=== PATIENT | male | born 1950 | race Caucasian/White ===

== ENCOUNTER 2017-11-24 16:13 | Inpatient (IN) ==
[2017-11-24] MEDS ORDERED: Iohexol 350 MG/ML 50 ML Vial (for Cath Lab) IVCONTRAST ONE (16:14)
[2017-11-24] MEDS ORDERED: Iohexol 350 MG/ML 100 ML Vial (for Cath Lab) IVCONTRAST ONE (16:14)
[2017-11-24 16:49] LABS: Baso % (Auto) 0.5 % (0.0-2.0); Eos # (Auto) 0.1 th/mm3 (0.0-0.4); Eos % (Auto) 1.2 % (0.0-4.0); Hematocrit 45.9 % (39.0-51.0); Hemoglobin 15.5 gm/dL (13.0-17.0); Lymph # (Auto) 1.8 th/mm3 (1.0-4.8); Lymph % (Auto) 20.2 % (9.0-44.0); Mean Corpuscular HGB Conc 33.8 % (32.0-36.0); Mean Corpuscular Volume 88.7 fL (80.0-100.0); Mono # (Auto) 0.5 th/mm3 (0.0-0.9); Neut # (Auto) 6.2 th/mm3 (1.8-7.7); Neut % (Auto) 72.1 % (16.0-70.0); Platelet Count 230 th/mm3 (150-450); Red Blood Count 5.18 mil/mm3 (4.50-5.90); Red Cell Distribution Width 13.2 % (11.6-17.2); White Blood Count 8.7 th/mm3 (4.0-11.0)
[2017-11-24 17:14] LABS: Activated Partial Thrombo Time 25.9 sec (24.3-30.1); Anion Gap 7 meq/L (5-15); Blood Urea Nitrogen 18 mg/dL (7-18); Calcium 9.2 mg/dL (8.5-10.1); Chloride 108 meq/L (98-107); Glomerular Filtration Rate 63 mL/min (>89); Glucose,Random 106 mg/dL (74-106); Prothrombin Time 10.2 sec (9.8-11.6); Sodium 143 meq/L (136-145)
[2017-11-24] MEDS ORDERED: Misc Info for Pharmacy OTHER STA (17:29)
[2017-11-24] MEDS ORDERED: Atropine Inj 1 MG/ML Vial IV.PUSH PRN (17:29)
[2017-11-24] MEDS ORDERED: Temazepam 15 MG Capsule PO PRN (17:29)
[2017-11-24] MEDS ORDERED: Acetaminophen 325 MG Tablet PO PRN (17:29)
--- NOTE | 2017-11-24 17:51 | CATHPROC ---
[address] HIS Report Study Information Study Number Admission Scheduled Start Study Start [id number] Nov 24 2017 4:13PM 11/24/2017 Nov 24 2017 4:43PM [place] [facility] Cardiac Catheterization Admit Source Facility Department Emergency department [facility] - [facility] Physician and Clinical Staff Initial Maulik [facility] Veronica Victoria,RT(R) [facility] Familia Mejia,OMER Obregon RN, Shan Recorder Orly Longoria BSN Scrub Myriam Mathew ,RT(R) Procedures Performed Procedure Location (Site) Vessel Name Coronary Angiograms LCA Left Coronary Coronary Angiograms RCA Right Coronary Coronary Angiograms BRUNNER Graft Left Coronary Coronary Angiograms Gft. Stump 1 SVG Graft Coronary Angiograms Gft. Stump 2 SVG Graft Drug Eluting Inflatio OM1 Prox CIRC Drug Eluting Inflatio OM2 Mid CIRC L Heart Cath PTCA OM2 Mid CIRC Wire insertion Fem Art (right) Femoral Art Equipment Time Facilities Engineer Description Size Mfg Part Number Used/Scraped TRANSDUCER, TRUWAVE [id number] 16:52 IGLESIAS CAREY * Used W/STOCKCOCK *[id number] *[id number] *[id number] *[id number] 17:20 DAIG/[employer]. [employer] ANGIOSEAL, FR6 VIP FR 6 Used *[id number] 16:52 [employer], BLANKET,WARM AIR CCL * Used *[id number] 16:52 [employer], PACK, CCL CUSTOM * Used *[id number] 16:52 [employer] PACER PEN, SKIN DUAL W/ RULER * Used *[id number] 17:01 MEDTRONIC BALLOON, 2.5 X 12MM EUPHORA 12MM Used *[id number] 17:12 MEDTRONIC STENT, 2.5 38MM SHEA 2.5 38MM [id number] Used [id number] 17:06 MEDTRONIC STENT, 2.75 12MM SHEA 2.75 12MM Used *[id number] 17:04 Beaut[employer]ish MEDICAL 30 SAPPHIRE INDEFLATOR Used *[id number] 16:52 Zebtab WIRE, 3MMJ .035 180CM 180CM Used *[id number] 16:52 [facility], 4 PORT * Used *[id number] 16:52 NYCOMED OMNIPAQUE, 350 MG, 150ML 150ML [id number] Used 16:52 NYCOMED OMNIPAQUE, 350 MG, 150ML 150ML [id number] Used 16:54 [employer]COMED OMNIPAQUE, 350 MG, 50ML 50ML [id number] Used [id number] 16:52 TERUMO MEDICAL SHEATH, FR5 TERUMO (10CM) FR 5 Used *[id number] WIRE, RUNTHROUGH NS FLOPPY [id number] 16:59 TERUMO MEDICAL 300CM Used .014 300CM *[id number] Equipment Model, Serial, Lot Number and Expiration Data Description Model Number Serial Number Lot Number Expiration Date ANGIOSEAL, FR6 VIP [id number] 05-20-2018 STENT, 2.75 12MM SHEA [id number] 06-25-2019 History: Current Medications Medication Dosage/Unit Route Frequency Last Date/Time Taken ASA 324 mg History: Allergies Allergy Reaction No Known Allergies History: Risk Factors Hypertension Dyslipidemia Previous CA Previous Heart Failure Yes Yes No No Prior Valve Prior PCI Prior CABG Prior CABGDate Surgery No No Yes 12/19/2008 Cerebrovascular Peripheral Artery Chronic Lung On Dialysis Diabetes Disease Disease Disease No No No No No History: Symptoms/Diagnosis Selection Items Chest pain History: CV Disease Selection Items Known CAD History: Stress Tests Stress or Imaging Studies Performed No History: CA/CV Data Previous CABG Date 12/19/2008 History: Other Current Smoker Method Quit Packs a Day No Cigarettes 20 Years Ago 20 Labs Hgb (g/dl) Hct (%) RBC (MIL/MM3) WBC (l/cumm) Platelets (thousands) 11.60-17.00 35.00-51.00 4.00-5.90 4.00-11.00 150.00-450.00 15.5 45.9 5.2 8.7 230 Glucose (mg/dl) BUN (mg/dl) Creatinine (mg/dl) BUN:Creatinine (1:x) 74.00-106.00 7.00-18.00 0.50-1.30 10.00-20.00 106 18 1.1 16.4 Na (meq/l) K (meq/l) 136.00-145.00 3.50-5.10 143 4 INR (PTT:PT) 0.90-1.10 1 Troponin I (ng/ml) CPK-MB (ng/ML) 0.02-0.05 0.50-3.60 0.02 Not Drawn Medication Medication Total Dose (Bolus/Oral) Medication Total Dosage/Unit 1% XYLOCAINE 20 mL ANGIOMAX BOLUS 13.5 mL FENTANYL 100 mcg NTG (IC) 200 mcg PLAVIX 600 mg VERSED 2 mg Medications (Bolus/Oral) Medication Time Given Dosage/Unit Administered By Reason VERSED 11/24/2017 4:48:19 PM 1 mg Jackie, Familia 1 mg VERSED given in lab by Familia Mejia RN via Peripheral IV. Ordered by Maulik Russell. FENTANYL 11/24/2017 4:49:23 PM 50 mcg Jackie, Familia 50 mcg FENTANYL given in lab by Familia Mejia RN via Peripheral IV. Ordered by Maulik Russell. 1% XYLOCAINE 11/24/2017 4:50:14 PM 20 mL Maulik Russell 20 mL 1% XYLOCAINE given in lab by Maulik Russell via Subcutaneous. Ordered by Maulik Russell. ANGIOMAX BOLUS 11/24/2017 5:01:53 PM 13.5 mL Jackie, Familia 13.5 mL ANGIOMAX BOLUS given in lab by Familia Mejia RN via Peripheral IV. Ordered by Maulik Russell. VERSED 11/24/2017 5:08:55 PM 1 mg Jackie, Familia 1 mg VERSED given in lab by Familia Mejia RN via Peripheral IV. Ordered by Maulik Russell. FENTANYL 11/24/2017 5:09:06 PM 50 mcg Jackie, Familia 50 mcg FENTANYL given in lab by Familia Mejia RN via Peripheral IV. Ordered by Maulik Russell. NTG (IC) 11/24/2017 5:16:37 PM 200 mcg Jackie, Familia 200 mcg NTG (IC) given in lab by Familia Mejia RN via Intra-coronary. Ordered by Maulik Russell. PLAVIX 11/24/2017 5:25:56 PM 600 mg Jackie, Familia 600 mg PLAVIX given in lab by Familia Mejia RN via Oral. Ordered by Maulik Russell. Medication (Drip) Medication Time Given Dosage/Unit Concentration/Unit Diluent (ml) Solution ANGIOMAX DRIP 11/24/2017 5:04:55 PM 1.733 mg/kg/hr 250 mg 50 NaCl .9 1.733 mg/kg/hr ANGIOMAX DRIP given in lab by Familia Mejia RN via Peripheral IV. Pump/Drip Flow = 31. 5 ml/hr using NaCl .9 with a concentration of 250 mg in 50 ml. Ordered by Maulik Russell. IV Solutions 11/24/2017 4:45:29 PM 0 mL (IV) 500 NaCl .9 IV Solutions given in lab by Familia Mejia RN in Right Antecubital via Peripheral IV. Pump/Drip Flow = 20 ml/hr using NaCl .9. Initial Case Assessment Cardiovascular HR Rhythm Chest Pain 68 SR 0 Edema Present Skin color Skin None Normal Warm Dry Circulatory - Right Pulses Dorsalis Pedis Femoral 3 2 Scale (0,1,2,3,4,d) Circulatory - Left Pulses Dorsalis Pedis Femoral 3 2 Scale (0,1,2,3,4,d) Circulatory - Lower Extremities Color Lower Right Color Lower Left Normal Normal Neurological State Oriented to time-place- Alert Moves all extremities person Respiration - General Respiration Rate SpO2 (%) (B/min) 17 99 Final Case Assessment Cardiovascular HR Rhythm NIBP Chest Pain 54 SB 151/81 0 Edema Present Skin color Skin None Normal Warm Dry Circulatory - Right Pulses Dorsalis Pedis Femoral 3 2 Scale (0,1,2,3,4,d) Circulatory - Left Pulses Dorsalis Pedis Femoral 3 2 Scale (0,1,2,3,4,d) Circulatory - Lower Extremities Color Lower Left Normal Neurological State Oriented to time-place- Alert Moves all extremities person Respiration - General Respiration Rate SpO2 (%) O2 (lpm) (B/min) 17 98 2 Chronological Log Time Study Chronological Log 16:37:50 Patient arrived via Bed. 16:38:10 Patient Name, D.O.B, / Armband Verified By R.N. 16:40:00 MD arrived. 16:43:14 Consent signed by the physician and the patient and verified by the [facility] staff. 16:43:15 Pre-op and post- op instructions given; patient acknowledges understanding of instructions. 16:43:16 Verbal Stimulation=2 Physical Stimulation=2 Airway=2 Respiration=2 TOTAL=8. (0=absent, 1=li mited, 2=present) 16:44:58 Patient has been NPO for More than 6Hrs. Skin Breakdown-NONE 58 16:45:04 A # 20 IV was noted in the Antecubital (left). Grade = 0 16:45:21 A # 20 IV was noted in the Antecubital (right). Grade = 0 IV Solutions given in lab by Familia Mejia RN in Right Antecubital via Peripheral IV. Pump/Drip Flow = 20 ml/hr using 16:45:29 NaCl .9. ::58 Disposable Defibrillator Pads Placed On Patient. 16:46:04 History and physical on the chart or being dictated. 16:46:07 Reference ECG taken Vitals capture started with the following parameters, Patient=Adult, Interval=5 min, Initial Pr qrlanm=929 mmHg, 16:46:09 Deflation Rate=5 mmHg, Cuff placed on Left Arm Assessment: Initial Case, HR=68 BPM, Rhythm=SR, Chest Pain=0, Edema=None, Color=Normal, Skin = Warm, Dry Right Pulses: Ray Ped=3, Femoral=2 Left Pulses: Ray Ped=3, Femoral=2 16:47:23 Lower Right Extremities: Color=Normal Lower Left Extremities: Color=Normal Neurological: State=Alert, Ox3, HARDEN Respiration: Resp=17 B/min, SpO2=99 % 16:47:34 HR=67 bpm, KJGD=486/78 mmhg, SpO2=99.0 %, Resp=25 B/min, Pain=0, Rafael=10, Irene=2 16:48:19 1 mg VERSED given in lab by Familia Mejia RN via Peripheral IV. Ordered by Maulik Russell. Time Out. Correct patient, correct procedure, correct physician, labs, allergies, and equipment verified with slabbing machine operator 16:48:43 team present. Fire risk assesment completed (see hard stop sheet for coding). Time Out Conc urred by MD and individual staff in procedure. 16:49:23 50 mcg FENTANYL given in lab by Familia Mejia RN via Peripheral IV. Ordered by Saray Russell 16:49:33 Case Start 16:50:14 20 mL 1% XYLOCAINE given in lab by Maulik Russell via Subcutaneous. Ordered by Saray Russell 16:51:00 Pressure channel 1 zeroed. 16:51:31 Access site was Right Femoral Artery. A JR 4.0 INFINITI CATHETER FR 6 was advanced over a wire. OMNIPAQUE, 350 MG, 150ML 150ML was us ed for 16:51:39 injections. 16:52:00 HR=68 bpm, XEPZ=202/82 mmhg, LwM1=442.0 %, Resp=13 B/min Recorded Pressure: LV, Ao, HR=78, Condition=Condition 1 16:53:05 (Left Ventricle) LV 152/-12/29, (Aorta) Ao 148/66/102 16:53:37 The RCA was injected and visualized at various angles. OMNIPAQUE, 350 MG, 150ML 150ML used . 16:56:00 The BRUNNER Graft was injected and visualized at various angles. OMNIPAQUE, 350 MG, 150ML 150M L used. After removing the current catheter a JL 4.0 INFINITI CATHETER FR 6 was advanced over a WIRE, 3 MMJ .035 180CM 16:56:25 180CM. 16:57:01 HR=68 bpm, VXGT=074/81 mmhg, ZjA1=704.0 %, Resp=14 B/min 16:57:44 The LCA was injected and visualized at various angles. OMNIPAQUE, 350 MG, 150ML 150ML used . 16:58:07 The Gft. Stump 1 was injected and visualized at various angles. OMNIPAQUE, 350 MG, 150ML 15 0ML used. 16:58:30 The Gft. Stump 2 was injected and visualized at various angles. OMNIPAQUE, 350 MG, 150ML 15 0ML used. 16:58:49 The Gft. Stump 2 was injected and visualized at various angles. OMNIPAQUE, 350 MG, 150ML 15 0ML used. After removing the current catheter a XB 3.5 GUIDE CATHETER FR 6 was advanced over a WIRE, RUNT HROUGH NS 16:59:02 FLOPPY .014 300CM 300CM. 17:00:18 A WIRE, RUNTHROUGH NS FLOPPY .014 300CM 300CM was inserted via Fem Art (right). 17:01:53 13.5 mL ANGIOMAX BOLUS given in lab by Familia Mejia, RN via Peripheral IV. Ordered by Maulik Russell. 17:01:58 HR=74 bpm, KLQJ=691/90 mmhg, FpX0=589.0 %, Resp=15 B/min 17:02:25 Interventional wire has crossed the lesion Recorded Pressure: Ao, HR=73, Condition=Condition 1 17:02:34 (Aorta) Ao 147/73/105 17:03:30 A balloons was inserted over wire via the ~SITE~. A BALLOON, 2.5 X 12MM EUPHORA 12MM over a WIRE, RUNTHROUGH NS FLOPPY .014 300CM 300CM in the OM 2 Mid 17:03:32 was inflated using a 30 SAPPHIRE INDEFLATOR at 7 sapphire for 13 sec. A BALLOON, 2.5 X 12MM EUPHORA 12MM over a WIRE, RUNTHROUGH NS FLOPPY .014 300CM 300CM in the OM 2 Mid 17:03:50 was inflated using a 30 SAPPHIRE INDEFLATOR at 12 sapphire for 9 sec. 1.733 mg/kg/hr ANGIOMAX DRIP given in lab by Familia Mejia RN via Peripheral IV. Pump/Drip Flow = 31.5 ml/hr 17:04:55 using NaCl .9 with a concentration of 250 mg in 50 ml. Ordered by Maulik Russell. 17:07:02 HR=70 bpm, XKWP=067/85 mmhg, GiS8=748.0 %, Resp=14 B/min A STENT, 2.75 12MM SHEA 2.75 12MM was advanced through a XB 3.5 GUIDE CATHETER FR 6 over a WIRE , 17:07:42 RUNTHROUGH NS FLOPPY .014 300CM 300CM. A STENT, 2.75 12MM SHEA 2.75 12MM was deployed using a 30 SAPPHIRE INDEFLATOR at 14 atmospheres for 10 seconds 17:07:54 in the OM2 Mid. 17:08:40 Delivery device removed 17:08:55 1 mg VERSED given in lab by Familia Mejia RN via Peripheral IV. Ordered by Maulik Russell. 17:09:06 50 mcg FENTANYL given in lab by Familia Mejia RN via Peripheral IV. Ordered by Saray Russell. 17:10:48 WIRE REPOSITIONED TO OM1 A STENT, 2.5 38MM SHEA 2.5 38MM was advanced through a XB 3.5 GUIDE CATHETER FR 6 over a WIRE, 17:11:57 RUNTHROUGH NS FLOPPY .014 300CM 300CM. 17:12:01 HR=72 bpm, SBBA=998/91 mmhg, SpO2=99.0 %, Resp=13 B/min A STENT, 2.5 38MM SHEA 2.5 38MM was deployed using a 30 SAPPHIRE INDEFLATOR at 16 atmospheres for 10 seconds in 17:13:02 the OM1 Prox. 17:13:24 Re-inflated the stent balloon in the OM1 Prox to 8 SAPPHIRE for 20 seconds. 17:14:54 Re-inflated the stent balloon in the OM1 Prox to 8 SAPPHIRE for 30 seconds. 17:15:28 Re-inflated the stent balloon in the OM1 Prox to 8 SAPPHIRE for 30 seconds. 17:15:55 Delivery device removed 17:16:37 200 mcg NTG (IC) given in lab by Familia Mejia RN via Intra-coronary. Ordered by Micky Russell. 17:17:00 HR=76 bpm, TXRJ=726/84 mmhg, SpO2=99.0 %, Resp=23 B/min 17:17:35 Wire removed 17:18:28 Catheter removed without difficulty 17:20:05 ANGIOSEAL, FR6 VIP FR 6 placement in the Fem Art (right); PRESSURE HELD POST DEPLOYMENT 17:21:57 HR=65 bpm, HNFD=999/85 mmhg, SpO2=98.0 %, Resp=17 B/min 17:22:01 Case End (Physician broke scrub) 17:22:17 No case complications noted. 17:22:18 Cine recording checked. 17:22:21 Bedside Report will be given. 17:22:25 Implantable Device card placed in patient's chart. 17:22:31 A Left Heart Cath was performed. 17:25:56 600 mg PLAVIX given in lab by Familia Mejia, RN via Oral. Ordered by Maulik Russell. 17:26:58 HR=54 bpm, DBSA=484/77 mmhg, SpO2=98.0 %, Resp=13 B/min 17:32:29 HR=54 bpm, RTPU=447/85 mmhg, SpO2=98.0 %, Resp=21 B/min 17:34:37 Sterile dressing applied to site 17:37:00 HR=54 bpm, VORP=566/81 mmhg, SpO2=98.0 %, Resp=20 B/min Assessment: Final Case, HR=54 BPM, Rhythm=SB, UCDA=716/81 mmhg, Chest Pain=0, Edema=None, Color =Normal, Skin = Warm, Dry Right Pulses: Ray Ped=3, Femoral=2 17:38:09 Left Pulses: Ray Ped=3, Femoral=2 Lower Left Extremities: Color=Normal Neurological: State=Alert, Ox3, HARDEN Respiration: Resp=17 B/min, SpO2=98 %, O2=2 lpm 17:39:14 Sterile dressing applied to site 17:43:33 Patient moved to stretcher End Study - Contrast Media Used In Study Contrast Total Opened (mL) Total Used (mL) Total Wasted (mL) Omnipaque 125 125 0 End Study - Maximum Contrast Load Max Contrast Load (mL) 413.2 End Study - Radiation Exposure Fluoro Time (minutes) 5.9 End Study - Patient Disposition Complications Transferred To Interventional Outcome No Telemetry Bed successful
[2017-11-24] MEDS ORDERED: Heparin/NS PF Inj 500 ML ONE (17:59)
[2017-11-24] MEDS ORDERED: fentaNYL Citrate Inj 100 MCG/2 ML Ampul ONE (18:00)
--- NOTE | 2017-11-24 18:11 | MH ---
cc: Maulik Russell MD DATE OF ADMISSION: 11/24/[address] INDICATION: ST elevation myocardial infarction. HISTORY OF PRESENT ILLNESS: This is a 67-year-old gentleman with history of prior coronary artery disease and bypass surgery, who follows with Dr. Mitchell in the outpatient setting, also has a history of hypertension, hyperlipidemia, multiple eye surgeries. He was at the gym earlier today, states that he normally exercises without any symptoms. He developed substernal chest pain and became very difficult to breathe. He drove himself over to our office, at which time, electrocardiogram was performed, which showed inferolateral ST elevation and EMS was called. He was taken over to the Emergency Department and taken up to the cardiac catheterization lab for possible revascularization with ongoing symptoms and EKG changes. PAST MEDICAL HISTORY: As mentioned above, history of coronary artery disease, eye surgery, hyperlipidemia, hypertension. MEDICATIONS: See medication reconciliation. ALLERGIES: NONE. REVIEW OF SYSTEMS: A 12-point review of systems was performed, negative unless otherwise noted in history of present illness. SOCIAL HISTORY: Denies any alcohol, tobacco use or drug use. Remote smoking history, but quit 20 years ago. PHYSICAL EXAMINATION: VITAL SIGNS: Heart rate 51, blood pressure is 133/70 mmHg. GENERAL: Alert and oriented x 3, in mild distress. HEENT: Shows pupils reactive to light and accommodation. Extraocular movements are intact. NECK: No elevation, jugular venous distention. No thyromegaly. No lymphadenopathy. No carotid bruits. LUNGS: Clear to auscultation bilaterally. CARDIOVASCULAR: Regular rate and rhythm, without murmurs, rubs or gallops. ABDOMEN: Nontender, nondistended. Good bowel sounds. No hepatosplenomegaly. EXTREMITIES: no edema. Good peripheral pulses. NEUROLOGIC: Cranial nerves intact. Motor and sensory grossly intact. LABORATORY DATA: Pending. ELECTROCARDIOGRAM: Inferolateral ST elevation, normal sinus rhythm. PLAN: ST elevation myocardial infarction, history of coronary artery disease. The patient will be brought emergently to the cardiac catheterization lab for attempted revascularization. Risks, benefits and alternatives discussed. The patient understood. We will initiate aspirin. We will hold off on beta saleem given bradycardia. Maulik Russell MD [facility] , 05:49 PM , 05:59 PM [place]
[2017-11-24] MEDS ORDERED: Sodium Chlor 0.9% Inj 250 ML IV.SIG ONE (19:30)
[2017-11-25 05:36] LABS: Baso % (Auto) 0.4 % (0.0-2.0); Eos # (Auto) 0.1 th/mm3 (0.0-0.4); Eos % (Auto) 1.3 % (0.0-4.0); Hematocrit 45.9 % (39.0-51.0); Hemoglobin 15.5 gm/dL (13.0-17.0); Lymph # (Auto) 1.9 th/mm3 (1.0-4.8); Lymph % (Auto) 20.3 % (9.0-44.0); Mean Corpuscular HGB Conc 33.9 % (32.0-36.0); Mean Corpuscular Volume 88.5 fL (80.0-100.0); Mean Platelet Volume 7.2 fL (7.0-11.0); Mono # (Auto) 0.9 th/mm3 (0.0-0.9); Mono % (Auto) 9.1 % (0.0-8.0); Neut # (Auto) 6.5 th/mm3 (1.8-7.7); Neut % (Auto) 68.9 % (16.0-70.0); Platelet Count 224 th/mm3 (150-450); Red Blood Count 5.19 mil/mm3 (4.50-5.90); Red Cell Distribution Width 13.1 % (11.6-17.2); White Blood Count 9.4 th/mm3 (4.0-11.0)
[2017-11-25 05:57] LABS: Calcium 8.7 mg/dL (8.5-10.1); Carbon Dioxide 29.5 meq/L (21.0-32.0); Potassium 3.9 meq/L (3.5-5.1)
[2017-11-25 05:59] LABS: Chol/HDL Ratio 4.25 Ratio; HDL Cholesterol 42.5 mg/dL (40.0-60.0)
[2017-11-25] MEDS: Isosorbide Mononitrate 30 MG ER 24HR Tablet (Imdur) PO SCH (06:07)
[2017-11-25 06:16] LABS: Creatine Kinase MB 93.9 ng/mL (0.5-3.6)
[2017-11-25 06:37] LABS: CKMB Percent 11.1 % (0.0-4.0)
--- NOTE | 2017-11-25 08:08 | P.PNCA ---
Subjective Interval history: states + "anxiety" because he did not get his benzo no CP run of asymptomatic NSVT last night He is eager to go home! Physical Exam Vital signs: Vital Signs 11/24/17 16:16 11/24/17 18:00 11/24/17 18:15 Temperature 98.3 F 97.8 F 97.8 F Pulse Rate 60 53 L 48 L Respiratory Rate 18 18 18 Blood Pressure 187/87 H 140/71 130/66 Pulse Oximetry 97 99 97 11/24/17 19:00 11/24/17 20:00 11/24/17 21:00 Temperature 98.4 F Pulse Rate 48 L 80 80 Respiratory Rate 18 Blood Pressure 115/67 Pulse Oximetry 97 11/24/17 22:00 11/24/17 23:00 11/25/17 00:00 Temperature 98.7 F Pulse Rate 76 77 64 Respiratory Rate 18 Blood Pressure 125/74 Pulse Oximetry 99 11/25/17 01:00 11/25/17 02:00 11/25/17 03:00 Temperature 99 F Pulse Rate 70 66 64 Respiratory Rate 16 Blood Pressure 137/74 Pulse Oximetry 98 11/25/17 04:00 11/25/17 05:00 11/25/17 06:00 Temperature Pulse Rate 64 86 78 Respiratory Rate Blood Pressure Pulse Oximetry 11/25/17 07:00 Temperature 98.6 F Pulse Rate 62 Respiratory Rate 18 Blood Pressure 144/74 H Pulse Oximetry 94 L Intake & Output 11/24/17 11/25/17 11/25/17 18:59 06:59 18:59 Intake Total 5 / 5 240 / 240 Output Total 575 / 575 Balance 5 / 5 -335 / -335 Weight 90.718 kg Intake: IV 5 / 5 Heparin/NS PF Inj 500 ML @ 0 5 / 5 mls/hr .ROUTE .STK-MED ONE Rx#: [id number] Oral 240 / 240 Output: Urine 575 / 575 Other: Date of Last Bowel Movement 11/24/17 - Constitutional no acute distress - Routine HEENT Exam Head: Present: normocephalic Eye: Present: PERRL ENT: Present: mucous membranes moist - Routine Neck Exam Absent: JVD - Routine Respiratory Exam Present: CTA bilaterally - Routine Cardiovascular Exam Present: RRR - Routine Abdominal Exam Present: soft, normoactive bowel sounds Assessment and Plan - Plan STEMI - PCI TARA OM1 and OM2 doing well asa plavix statin HR improved. add BB NSVT - likely due to reperfusion arrhythmia and acute ME. monitor tele today. BB added. 2d echo today ambulate He really wants to go home today. I discussed risks and concerns. he is agreeable to stay through the afternoon to see if any further arrhythmia and for echo, then we can decide disposition.
[2017-11-25] MEDS: clonazePAM 0.5 MG Tablet PO SCH (08:29)
[2017-11-25] MEDS: Metoprolol Tartrate 25 MG Tablet PO SCH ×2 (08:29→20:35)
[2017-11-25] MEDS: Lisinopril 10 MG Tablet PO SCH (08:29)
--- NOTE | 2017-11-25 12:28 | ECHRPT ---
Indication: CHEST PAIN CONCLUSIONS The left ventricular systolic function is normal with an estimated ejection fraction in the range of 60-65%. Normal left ventricular size. Wall thickness is normal. No regional wall motion abnormalities are present. Trace mitral valve regurgitation. There is trace tricuspid valve regurgitation. The estimated pulmonary arterial pressure is 38.3 mmHg. BP: / HR: Rhythm: Sinus MEASUREMENTS (Male / Female) Normal Values Technical Quality:Good 2D ECHO LV Diastolic Diameter PLAX 4.9 cm 4.2 - 5.9 / 3.9 - 5.3 cm LV Systolic Diameter PLAX 3.5 cm IVS Diastolic Thickness 1.1 cm 0.6 - 1.0 / 0.6 - 0.9 cm LVPW Diastolic Thickness 1.1 cm 0.6 - 1.0 / 0.6 - 0.9 cm LV Relative Wall Thickness 0.5 RV Internal Dim ED PLAX 2.7 cm LVOT Diameter 1.9 cm LA Systolic Diameter LX 4.0 cm 3.0 - 4.0 / 2.7 - 3.8 cm LV Ejection Fraction MOD 4C 64.9 % LV Ejection Fraction 4C AL 66.2 % M-MODE Aortic Root Diameter MM 2.5 cm LA Systolic Diameter MM 4.0 cm LA Ao Ratio MM 1.6 AV Cusp Separation MM 1.9 cm DOPPLER AV Peak Velocity 159.0 cm/s AV Peak Gradient 10.1 mmHg LVOT Peak Velocity 101.0 cm/s LVOT Peak Gradient 4.1 mmHg AV Area Cont Eq pk 1.8 cm MV Area PHT 3.3 cm Mitral E Point Velocity 104.0 cm/s Mitral A Point Velocity 83.4 cm/s Mitral E to A Ratio 1.2 LV E' Lateral Velocity 8.3 cm/s Mitral E to LV E' Lateral Ratio 12.5 LV E' Septal Velocity 7.2 cm/s Mitral E to LV E' Septal Ratio 14.4 TR Peak Velocity 266.0 cm/s TR Peak Gradient 28.3 mmHg Right Atrial Pressure 10.0 mmHg Pulmonary Artery Systolic Pressu 38.3 mmHg Right Ventricular Systolic Press 38.3 mmHg PV Peak Velocity 121.0 cm/s PV Peak Gradient 5.9 mmHg FINDINGS LEFT VENTRICLE The left ventricular systolic function is normal with an estimated ejection fraction in the range of 60-65%. Normal left ventricular size. Wall thickness is normal. No regional wall motion abnormalities are present. RIGHT VENTRICLE Normal right ventricular size and systolic function. LEFT ATRIUM The left atrial size is normal. RIGHT ATRIUM The right atrial size is normal. ATRIAL SEPTUM Normal atrial septal thickness without atrial level shunting by limited color doppler interrogation. AORTA The aortic root and proximal ascending aorta are normal in size on limited imaging. MITRAL VALVE Structurally normal mitral valve. Trace mitral valve regurgitation. AORTIC VALVE Trileaflet aortic valve. No aortic valve stenosis or regurgitation. TRICUSPID VALVE Structurally normal tricuspid valve. There is trace tricuspid valve regurgitation. The estimated pulmonary arterial pressure is 38.3 mmHg. PULMONARY VALVE No pulmonary valve regurgitation or stenosis. VESSELS The inferior vena cava is normal in size. PERICARDIUM No pericardial effusion. Maluik Russell MD, FACC (Electronically Signed) Final Date:25 November 2017 12:27
[2017-11-25] MEDS ORDERED: clonazePAM 1 MG Tablet PO ONE (15:30)
--- NOTE | 2017-11-25 18:10 | ECG ---
Date Performed: 11/25/2017 Time Performed: 06:33:08 PTAGE: 67 years EKG: Sinus rhythm . Ant/septal and lateral T wave changes are nonspecific Borderline ECG PREVIOUS TRACING : 11/24/2017 16.24 Since the previous tracing, no significant change noted DOCTOR: Radhames Robertson Interpretating Date/Time 11/25/2017 18:08:47
[2017-11-25] MEDS ORDERED: clonazePAM 0.5 MG Tablet PO SCH (21:00)
--- NOTE | 2017-11-25 22:36 | ECG ---
Date Performed: 11/24/2017 Time Performed: 16:24:28 PTAGE: 67 years EKG: Sinus rhythm ST ELEVATION, CONSIDER INFERIOR INJURY ACUTE NE INTERPRETATION BASED ON A DEFAULT AGE OF 40 YE ARS PREVIOUS TRACING : 06/29/2009 21.46 Compared to previous tracing, INFERIOR ST ABNORMALIT IES ARE NEW DOCTOR: Radhames Robertson Interpretating Date/Time 11/25/2017 22:32:03
[2017-11-26] MEDS: Isosorbide Mononitrate 30 MG ER 24HR Tablet (Imdur) PO SCH (06:03)
--- NOTE | 2017-11-26 07:57 | P.PNCA ---
<Tutu Valdes - Last Filed: 11/26/17 07:55> Subjective Interval history: The patient is doing well; no chest pain, shortness of breath, or palpitations. No issues with groin access. Telemetry showed some runs of NSVT yesterday afternoon and evening. Asked EP for evaluation, currently awaiting. Physical Exam Vital signs: Vital Signs 11/25/17 08:00 11/25/17 09:00 11/25/17 11:00 Temperature 98.9 F Pulse Rate 55 L 54 L Respiratory Rate 18 Blood Pressure 101/75 Pulse Oximetry 98 97 11/25/17 12:49 11/25/17 14:00 11/25/17 15:00 Temperature 98.4 F Pulse Rate 56 L 56 L Respiratory Rate 18 Blood Pressure 137/72 Pulse Oximetry 94 L 98 11/25/17 16:00 11/25/17 17:00 11/25/17 18:00 Temperature Pulse Rate 58 L 56 L 66 Respiratory Rate Blood Pressure Pulse Oximetry 11/25/17 19:00 11/25/17 20:00 11/25/17 21:00 Temperature 98.7 F Pulse Rate 64 70 60 Respiratory Rate 14 Blood Pressure 137/73 Pulse Oximetry 98 97 11/25/17 22:00 11/25/17 23:00 11/26/17 00:00 Temperature 97.6 F Pulse Rate 50 L 51 L 50 L Respiratory Rate 12 Blood Pressure 95/50 L Pulse Oximetry 98 11/26/17 01:00 11/26/17 02:00 11/26/17 03:00 Temperature 98.3 F Pulse Rate 52 L 58 L 53 L Respiratory Rate 14 Blood Pressure 126/68 Pulse Oximetry 96 11/26/17 04:00 11/26/17 05:00 11/26/17 06:00 Temperature Pulse Rate 52 L 56 L 50 L Respiratory Rate Blood Pressure Pulse Oximetry Intake & Output 11/25/17 11/26/17 11/26/17 18:59 06:59 18:59 Intake Total 240 / 240 240 / 240 Output Total 600 / 600 900 / 900 Balance -360 / -360 -660 / -660 Weight 202 lb 13.204 oz Intake: Oral 240 / 240 240 / 240 Output: Urine 600 / 600 900 / 900 Other: Date of Last Bowel Movement 11/24/17 11/25/17 Narrative: GENERAL: Well-developed well-nourished. In no acute distress. NECK: No carotid bruits. No JVD. CARDIOVASCULAR: Regular rate and rhythm. No murmur appreciated. RESPIRATORY: No accessory muscle use. Clear to auscultation. Breath sounds equal bilaterally. MUSCULOSKELETAL: No clubbing or cyanosis. No edema. NEUROLOGICAL: Awake and alert. Normal speech. Assessment and Plan - Plan STEMI - PCI TARA OM1 and OM2 doing well asa plavix statin NSVT - likely due to reperfusion arrhythmia and acute SC. monitor tele. BB added. EF normal Asked EP for evaluation, pending If nothing further to add from EP perspective, discharge planning later today Discussed Condition With: Patient, Dr. Russell <Maulik Russell - Last Filed: 11/26/17 10:34> Physical Exam Vital signs: Vital Signs 11/25/17 11:00 11/25/17 12:49 11/25/17 14:00 Temperature 98.9 F Pulse Rate 54 L 56 L Respiratory Rate 18 Blood Pressure 101/75 Pulse Oximetry 97 94 L 11/25/17 15:00 11/25/17 16:00 11/25/17 17:00 Temperature 98.4 F Pulse Rate 56 L 58 L 56 L Respiratory Rate 18 Blood Pressure 137/72 Pulse Oximetry 98 11/25/17 18:00 11/25/17 19:00 11/25/17 20:00 Temperature 98.7 F Pulse Rate 66 64 70 Respiratory Rate 14 Blood Pressure 137/73 Pulse Oximetry 98 97 11/25/17 21:00 11/25/17 22:00 11/25/17 23:00 Temperature 97.6 F Pulse Rate 60 50 L 51 L Respiratory Rate 12 Blood Pressure 95/50 L Pulse Oximetry 98 11/26/17 00:00 11/26/17 01:00 11/26/17 02:00 Temperature Pulse Rate 50 L 52 L 58 L Respiratory Rate Blood Pressure Pulse Oximetry 11/26/17 03:00 11/26/17 04:00 11/26/17 05:00 Temperature 98.3 F Pulse Rate 53 L 52 L 56 L Respiratory Rate 14 Blood Pressure 126/68 Pulse Oximetry 96 11/26/17 06:00 11/26/17 07:00 11/26/17 08:00 Temperature 97.7 F Pulse Rate 50 L 72 72 Respiratory Rate 18 Blood Pressure 109/58 L Pulse Oximetry 96 Intake & Output 11/25/17 11/26/17 11/26/17 18:59 06:59 18:59 Intake Total 240 / 240 240 / 240 Output Total 600 / 600 900 / 900 Balance -360 / -360 -660 / -660 Weight 92 kg Intake: Oral 240 / 240 240 / 240 Output: Urine 600 / 600 900 / 900 Other: Date of Last Bowel Movement 11/24/17 11/25/17 11/25/17 Assessment and Plan - Attending Attestation no further arrhythmia continue BB patient eager to go home ambulate will discuss with dr beck, i suspect this was related to SC (< 48 hours). He ate breakfast. I don't anticipate EPS at this point. Hopefully, cleared for Discharge today.
[2017-11-26 08:39] VITALS: RESP 18
[2017-11-26] MEDS: clonazePAM 0.5 MG Tablet PO SCH (09:40)
[2017-11-26] MEDS: Metoprolol Tartrate 25 MG Tablet PO SCH (09:41)
[2017-11-26] MEDS: Lisinopril 10 MG Tablet PO SCH (09:42)
[2017-11-26 12:02] VITALS: O2SAT 98
--- NOTE | 2017-11-26 14:32 | MA ---
cc: Maulik Russell MD DATE: 11/24/2017 INDICATION: ST elevation myocardial infarction. PROCEDURES PERFORMED: 1. Fluoroscopy with interpretation. 2. Coronary angiography. 3. Left heart catheterization. 4. Coronary artery bypass graft angiography. 5. Percutaneous coronary intervention, drug-eluting stents to the first and second obtuse marginal branches. METHOD: Risks, benefits, and alternatives discussed with the patient. The patient has consented to procedure. The patient was brought to the catheterization lab, placed on the catheterization table. The right groin was prepped and draped in sterile fashion. The right groin was anesthetized with 2% lidocaine. The right common femoral artery was cannulated, 6-Vincentian sheath was placed without difficulty. CORONARY ARTERY BYPASS GRAFT ANGIOGRAPHY 1, 2, 3, 4: For the blackfeet coronaries: 1. Left main coronary artery is mild luminal irregularities. 2. Left anterior descending coronary artery has 90% proximal stenosis and aneurysmal segment with moderate diffuse disease and competitive filling in the remainder of the left anterior descending coronary. 3. The first obtuse marginal branch has a 90% stenosis, the second obtuse marginal branch a has a 95% stenosis. 4. The right coronary has a 90% stenosis in the mid segment, is occluded distally. It appears to be smaller caliber size distally beyond that lesion. PERCUTANEOUS INTERVENTION: The patient's has had ongoing symptoms. Right coronary artery is occluded distally, but not a very large vessel and appears to possibly be fed by small collaterals. The circumflex could be inferolateral distribution, consistent with EKG and feeding some collateralization, so we decided to proceed with intervention assuming the second obtuse marginal branch potentially the culprit lesion. XBLAD 3.5 guide catheter was advanced to the left main. A 0.014 samari was navigated down the second obtuse marginal branch, 2.5 x 12 mm RX Euphora balloon was then deployed. Repeat angiography showed severe residual stenosis. A 2.75 x 12 mm RX Resolute Jamal stent was deployed at second obtuse marginal branch. No residual stenosis. Attention was then directed towards the first obtuse marginal branch, samari wire directed down to the distal segment. A 2.5 x 38 mm RX Resolute Jamal stent was then deployed in the first obtuse marginal branch. Repeat angiography showed no residual stenosis, CÉSAR 3 flow. The wire was removed. Guide catheter removed. Electrocardiogram normalized, symptoms resolved. Angiomax was administered. CONCLUSIONS: 1. Severe blackfeet three-vessel coronary artery disease. 2. One of four coronary artery bypass grafts are patent. 3. Successful percutaneous coronary intervention with drug-eluting stents to the first and second obtuse marginal branch. PLAN: The patient will be initiated on aspirin, Plavix and statin therapy. We will hold off on beta saleem given his bradycardia and heart rate of 50 beats per minute range. We will add angiotensin converting enzyme inhibitor. We will add isosorbide given his diffuse disease and medically manage remainder of his coronary disease. We will monitor for any post-procedural complications. Hopefully, anticipate discharge in the near future. MD BRIGIDO Crespo/JYOTHI , 05:45 PM , 05:56 PM [email or web address]
--- NOTE | 2017-11-26 15:59 | MB ---
cc: Stacie Juarez MD,Maulik Dillard MD DATE: 11/26/2017 REASON FOR CONSULTATION: Wide complex tachyarrhythmia. HISTORY OF PRESENT ILLNESS: Mrs. Schofield is a 67-year-old gentleman with history of coronary artery disease, coronary artery bypass grafting, high blood pressure, hyperlipidemia, who was admitted due to non-ST elevation myocardial infarction. During hospitalization PTCA plus stent was performed. Subsequently, yesterday the patient developed around 2 p.m. episode of wide complex tachyarrhythmia. I was consulted for evaluation and management. The chart was reviewed. The patient was evaluated. ALLERGIES: NONE. SOCIAL HISTORY: Negative for smoking and drinking. FAMILY HISTORY: Noncontributory to his current medical condition. MEDICATIONS: Mr. Schofield is currently on: 1. Acetaminophen. 2. Aspirin 81 mg a day. 3. Lipitor 40 mg a day. 4. Plavix 75 mg a day. 5. Imdur 30 mg a day. 6. Lisinopril 10 mg a day. 7. Metoprolol. REVIEW OF SYSTEMS: Currently, he refers no chest pain, no chest discomfort. No dizziness. No fever. PHYSICAL EXAMINATION: GENERAL: Alert, fully oriented. VITAL SIGNS: His blood pressure is 118/81, pulse 57, respiratory rate 18. LUNGS: Ventilated. CARDIOVASCULAR: S1, S2. No gallop. No murmur. ABDOMEN: Soft. No mass. LOWER EXTREMITIES: No edema. Electrocardiogram taken yesterday at 6 in the morning indicates sinus rhythm, with diffuse ST changes. LABORATORY DATA: Hemoglobin is 15.5, white blood cells 9.4. INR 1.04. Potassium 3.9, creatinine is 1.06. Troponin 0.028. HDL 42, LDL 110, total cholesterol 181. ASSESSMENT AND RECOMMENDATIONS: Mr. Schofield has non-ST elevation myocardial infarction, currently is doing well. He had an episode of nonsustained ventricular tachycardia. He is on Coreg. For his systolic blood pressure he is already on beta saleem. He is on metoprolol 25 mg twice a day and ejection fraction is normal. The patient refers no dizziness or any syncope. He may be with arrhythmia of revascularization. At this point, my recommendation is observation. The patient refused to stay in the hospital. Case extensively discussed with him and Dr. Russell over the phone. I am going to increase the Lopressor to 50 mg twice a day. He can be discharged home. I will see him as an outpatient. If necessary a monitor will be placed. I advised the patient for any dizziness, shortness of breath or any syncope to reach the nearest emergency room. MD AURELIA Rivera/MILIND , 03:35 PM , 03:44 PM
[2017-11-26 17:10] VITALS: BP 118/47; PULSE 66; TEMP 98
--- NOTE | 2017-11-26 17:32 | P.DS ---
Date of admission: 11/24/17 18:28 Primary care physician: No Primary Care Physician Brief History from admission: presented with STEMI underwent PCI had NSVT and evaluated by EP cleared for DC DS: Diagnosis - Discharge Diagnosis (1) STEMI (ST elevation myocardial infarction) Status: Acute (2) Nonsustained ventricular tachycardia Status: Acute DS: Medications - Discharge Medications Prescriptions: atorvastatin 40 mg PO HS #30 tab clopidogrel [Plavix] 75 mg PO DAILY #30 tab isosorbide mononitrate 30 mg PO DAILY@0700 #30 tab lisinopril 10 mg PO DAILY #30 tab metoprolol tartrate 50 mg PO BID #60 tab DS: Summary Hospital Course: underwent PCI evaluated by EP for NSVT - Time Spent with Patient Total time spent providing and/or coordinating discharge services: Less than 30 minutes Exam Vital signs: Vital Signs 11/25/17 18:00 11/25/17 19:00 11/25/17 20:00 Temperature 98.7 F Pulse Rate 66 64 70 Respiratory Rate 14 Blood Pressure 137/73 Pulse Oximetry 98 97 11/25/17 21:00 11/25/17 22:00 11/25/17 23:00 Temperature 97.6 F Pulse Rate 60 50 L 51 L Respiratory Rate 12 Blood Pressure 95/50 L Pulse Oximetry 98 11/26/17 00:00 11/26/17 01:00 11/26/17 02:00 Temperature Pulse Rate 50 L 52 L 58 L Respiratory Rate Blood Pressure Pulse Oximetry 11/26/17 03:00 11/26/17 04:00 11/26/17 05:00 Temperature 98.3 F Pulse Rate 53 L 52 L 56 L Respiratory Rate 14 Blood Pressure 126/68 Pulse Oximetry 96 11/26/17 06:00 11/26/17 07:00 11/26/17 08:00 Temperature 97.7 F Pulse Rate 50 L 72 72 Respiratory Rate 18 Blood Pressure 109/58 L Pulse Oximetry 96 11/26/17 09:00 11/26/17 10:00 11/26/17 10:59 Temperature Pulse Rate 59 L 58 L 56 L Respiratory Rate Blood Pressure Pulse Oximetry 11/26/17 11:00 11/26/17 12:00 11/26/17 13:00 Temperature 97.7 F Pulse Rate 57 L 54 L 56 L Respiratory Rate 18 Blood Pressure 118/81 Pulse Oximetry 98 11/26/17 14:00 11/26/17 15:00 11/26/17 16:00 Temperature 98 F Pulse Rate 65 62 65 Respiratory Rate 18 Blood Pressure 118/47 L Pulse Oximetry 98 11/26/17 17:00 Temperature Pulse Rate 66 Respiratory Rate Blood Pressure Pulse Oximetry Intake & Output 11/25/17 11/26/17 11/26/17 18:59 06:59 18:59 Intake Total 240 / 240 240 / 240 Output Total 600 / 600 900 / 900 Balance -360 / -360 -660 / -660 Weight 92 kg Intake: Oral 240 / 240 240 / 240 Output: Urine 600 / 600 900 / 900 Other: Date of Last Bowel Movement 11/24/17 11/25/17 11/25/17 Results Procedures completed during hospitalization: PCI Discharge Plan - Discharge Disposition Patient Disposition: 01 Discharge Home - Discharge Condition Condition: Good - Discharge Order Discharge Orders: Discharge Order (Routine); Ordered 11/26/17 Ordered By: Maulik Russell Cardiology Clear for Discharge (Routine); Ordered 11/26/17 Ordered By: Maulik Russell - Discharge Details Anticipated Discharge Date: 11/26/17 Discharge Comment: FU primary care in 2 weeks - Physicians Team Primary Care Provider: Primary Care Monique,No Attending Provider: Maulik Russell
[2017-11-26] MEDS ORDERED: Metoprolol Tartrate 50 MG Tablet PO SCH (21:00)
== END 2017-11-26 18:47 | disposition home or self-care (01) ==
LOC: NED 16:13 → HCIS 16:24
PROVIDERS: ADMIT Internal Medicine; ATTEND Internal Medicine